=== PATIENT | male | born 1990 | race Caucasian/White ===

== ENCOUNTER 2018-05-26 07:43 | Emergency (ER) | payer OTHER ==
[~2018-05-26] VITALS: Ht 172.7 cm; Wt 63.5 kg
[~2018-05-26 07:43] MED LIST: ACYCLOVIR 400400 MG PO; ASPIRIN325 PO; BACTRIM DS TAB1 EACH PO; IBUPROFEN 800800 MG PO; KEFLEX250 MG PO; LORTAB 5 MG/5001 TA1 PO; NOHOMEMEDICATIONS; NORCO 5-325 TA1 EACH PO; TRAMADOL 50 MG50 MG PO
[2018-05-26 07:53] VITALS: BP 128/67
[2018-05-26] MEDS ORDERED: KEFLEX500 M1 PO (08:20)
[2018-05-26] MEDS ORDERED: ULTRAM 50MG TAB50 MG PO (08:20)
== END 2018-05-26 08:32 | disposition home or self-care (01) ==
LOC: M.ERS 07:43
DX: S61.412A Laceration without foreign body of left hand, initial encounter (principal); F17.210 Nicotine dependence, cigarettes, uncomplicated; Z90.49 Acquired absence of other specified parts of digestive tract; W26.8XXA Contact with other sharp object(s), not elsewhere classified, initial encounter; Y93.89 Activity, other specified; Y92.89 Other specified places as the place of occurrence of the external cause; Y99.8 Other external cause status

== ENCOUNTER 2018-08-03 18:51 | Emergency (ER) | payer OTHER ==
[~2018-08-03] VITALS: Ht 182.9 cm; Wt 76.2 kg
[~2018-08-03 18:51] MED LIST changes: +KEFLEX500 M1 PO; +ULTRAM 50MG TAB50 MG PO
[2018-08-03] MEDS ORDERED: MEDROLDOSEPACK PO (19:45)
[2018-08-03 19:52] VITALS: BP 108/51
== END 2018-08-03 19:52 | disposition home or self-care (01) ==
LOC: M.ERS 18:51
DX: R21 Rash and other nonspecific skin eruption (principal); F17.210 Nicotine dependence, cigarettes, uncomplicated; Z90.49 Acquired absence of other specified parts of digestive tract